=== PATIENT | male | born 1960 | race African-American/Black ===

== ENCOUNTER → 2024-05-02 10:49 | Outpatient (REF) | payer BC, SELFPAY ==
[2024-05-02 12:20] LABS: Uric Acid 6.5 mg/dl (3.5-8.5)
== END ==
LOC: REG 10:49
PROVIDERS: ATTENDING PHYSICIAN Physician Assistant Medical; FAMILY PHYSICIAN Nurse Practitioner
DX: T81.89XA Other complications of procedures, not elsewhere classified, initial encounter (principal)
CPT/HCPCS: 36415; 84550